=== PATIENT | male | born 1955 | race Caucasian/White ===

== ENCOUNTER 2020-04-09 12:33 | Outpatient (RCR) | payer MEDICARE, BC, SELFPAY | END 2020-04-16 23:59 | disposition home or self-care (01) | LOC: CR 12:33 | PROVIDERS: Family Provider Family Medicine; Visit Provider Surgery | DX: Z95.1 Presence of aortocoronary bypass graft (principal) | CPT/HCPCS: 93798 ==

== ENCOUNTER 2020-04-17 09:24 | Outpatient (RCR) | payer MEDICARE, BC, SELFPAY | END 2020-05-17 23:59 | disposition home or self-care (01) | LOC: CR 09:24 | PROVIDERS: Family Provider Family Medicine; Visit Provider Surgery | DX: Z95.1 Presence of aortocoronary bypass graft (principal) | CPT/HCPCS: 93798 ==

== ENCOUNTER 2020-05-21 09:05 | Outpatient (RCR) | payer MEDICARE, OTHER, SELFPAY | END 2020-06-17 23:59 | disposition home or self-care (01) | LOC: CR 09:05 | PROVIDERS: Family Provider Family Medicine; Visit Provider Surgery | DX: Z95.1 Presence of aortocoronary bypass graft (principal) | CPT/HCPCS: 93798 ==

== ENCOUNTER 2020-06-18 11:27 | Outpatient (RCR) | payer MEDICARE, BC, OTHER, SELFPAY | END 2020-07-17 23:59 | disposition home or self-care (01) | LOC: CR 11:27 | PROVIDERS: Family Provider Family Medicine; Visit Provider Surgery | DX: Z95.1 Presence of aortocoronary bypass graft (principal) | CPT/HCPCS: 93798 ==